=== PATIENT | male | born 1965 | race Caucasian/White ===

== ENCOUNTER → 2016-09-24 | Outpatient (CLI) | payer BC ==
[~2016-09-24] MED LIST: ASPI81TA28 PO; ATOR-24 PO; AZIT250T5 PO; ERGO1TAB10 PO; ESOM20CA PO; GLC/500 PO; HYDR5SYP11 PO; LISI-725 PO; MULT-506 PO
--- NOTE | 2016-09-25 05:15 | PAP/PSG TECHNICIAN REPORT ---
[facility] [place] Environmental Research Project Manager Polysomnogram Report Study name: None Report date: 09/25/2016 Study date: 09/24/2016 Referring Physician: Praveen March MD Name: ION CID Interpreting Physician: Nico Sadler M.D. Date of : 1965 Environmental Research Project Manager: [place]. Sex: Male Age: 50 StudyType: PSG Weight: 200 lbs Height: 50 years, Height 5' 6" Neck Circum:18INCHES BMI: 32.28 Medications: ASA, Atorvastatin, Lantus, Lisinopril, Metformin, Nexium, Vit D Patient History Study started on room air with no ETCO2 monitoring in room #8. 50 yr old male here tonight for a diagnostic psg. He has a history of HTN, diabetes and polycythemia. He had a sleep study several years ago in [place] but did not require treatment at that time. He snores. His ESS=12/24. His neck circ=18inches. Parameters Monitored NPSG: E1-M2, E2-M1, Fp1-M2, Fp2-M1, F3-M2, F4-M2, F4-M1, C3-M2, C4-M2, C4-M1, O1-M2, O2-M2, O2-M1, T3-M2, T4-M1, P3-M2, P4-M1, CHIN1, CHIN2, HR, EKG, Legs, PFLOW, SNOR, FLOW, CFLOW, Tidal Volume, THOR, ABDO, SpO2, PLTH, CPRESS, ETCO2 Wave, ETCO2, pH Sleep Architecture Sleep Stages Time at Lights Off 9:34:52 PM STAGES Time (min.) TST (%) Time at Lights On 4:53:52 AM Wake 48.5 -- Total Recording Time (TRT) 439.00 min. N1 41.5 11 Total Sleep Period (TSP) 431.0 min. N2 212.0 54 Total Sleep Time (TST) 390.5min. N3 57.5 15 Awake Time 48.5 min. REM 79.5 20 Wake after Sleep Onset 40.5 min. Sleep Efficiency (SE) 89 % Sleep Onset Latency (CARA) 8.0 min. Number of Stage 1 Shifts None Awakenings 30 Stage Changes 152 Number of REM periods 9 REM 79.5 20 REM Latency 51.0 min. NREM 311.0 80 Body Position Analysis Supine Right Left Side Prone Vertical Total Sleep Time (min.) 52.8 197.5 166.5 363.98 0.0 0.0 Total Sleep Time (%) 7% 51% 43% 93 0% N/A% Total Sleep Time REM (min.) 0.0 45.5 34.0 None 0.0 0.0 Total Sleep Time NREM (min.) 26.5 152.0 132.5 None 0.0 0.0 Intermittent Wake (min.) 26.3 12.7 9.5 None 0.0 0.0 Total Sleep Period (%) 10% None None None None None Arousals Myoclonus (PLM) * Events Count Index Events Count Index Spontaneous 5 1 Events Awake (PLMW) 77 95.3 Respiratory 60 10.8 Events Asleep w/ Arousal (PLMA) 12 1.8 PLM 12 2 Events Asleep w/o Arousal (PLMS) 124 19.1 Snoring 7 1 Total Asleep 136 20.9 Total 84 13 Total 213 29 Respiratory Analysis * CA OA MA CH H RERA Total Count 3 20 7 0 85 0 115 Index 0.5 3.1 1.1 0 13.1 0 17.7 Mean Duration 13.8 28.5 36.9 0.00 31.0 0.0 30.5 Longest Duration 14.9 55.7 42.3 0.00 42.3 0.0 75.1 Respiratory Event Summary Total Supine ~Supine Right Left Prone REM NREM Apneas Count 30 21 9 5 4 N/A 2 28 Index 4.6 48 1 1.5 1.4 N/A 2 5 Hypopneas (4% Desat) Count 85 15 70 53 17 N/A 6 79 Index 13.1 33.9 12 16.1 6.1 N/A 4.5 15.2 Apneas & All Hypopneas Count 115 36 79 58 21 N/A 8 107 Index 17.7 81 13 18 8 N/A 6.0 20.6 Respiratory Events (Steel Layer+All Hyp+RERA) Count 115 36 79 58 21 N/A 8 107 Index 17.7 81 13 17.6 7.6 N/A 6.0 20.6 Respiratory Related Arousal Count 60 36 43 30 13 N/A 3 67 Index 10.8 61 7 9 5 N/A 2 13 Snoring Analysis Supine Right Left Prone REM NREM Total Snore duration 57.2 min Snores count 56 1,295 1,239 N/A 824 1,766 2,590 Snore mean duration 1.3 Sec Snores index 127 393 447 N/A 621.9 340.7 398.0 TST with snoring (%) 14.6% Desaturation Event Summary: Minimum %SpO2 Event Count Mean/Min/Max Duration(sec.) Desaturation Index % Time In Bed > 90 126 32.3 / 5.8 / 60.0 100.4 18.0 86 - 90 79 27.4 / 4.3 / 60.0 17.3 65.6 81 - 85 10 14.3 / 6.3 / 28.0 10.9 13.2 76 - 80 0 N/A 0.0 2.5 71 - 75 0 N/A 0.0 0.6 66 - 70 0 N/A 0.0 0.1 61 - 65 0 N/A 0.0 0.0 56 - 60 0 N/A 0.0 0.0 51 - 55 0 N/A 0.0 0.0 < 50 0 N/A 0.0 0.0 Total REM NREM Awake <50% 0.0 min. 0.0 min. 0.0 min. 0.0 min. 51 - 60% 0.0 min. 0.0 min. 0.0 min. 0.0 min. 61 - 70% 0.5 min. 0.0 min. 0.3 min. 0.2 min. 71 - 80% 13.0 min. 0.9 min. 9.1 min. 2.9 min. 81 - 90% 329.6 min. 68.3 min. 233.2 min. 28.1 min. 91 - 100% 75.3 min. 10.0 min. 57.1 min. 8.2 min. Average 88 88 88 87 Minimum SpO2 67 77 68 67 Desaturation Event Index 24.2 7.5 26.4 42.1 # Desat. Events below 89% 165 9 130 26 Time(%) with Saturation below 89% 51.5 11.7 34.3 5.6 Time(min.) with Saturation below 89% 215.6 48.8 143.4 23.3 Time (mins) REM (mins) NREM (mins) % of TST SpO2 Below 90% 143 10 N133 69.5 SpO2 Below 88% 70 0 0 33 Heart Rate Analysis Min (bpm) Max (bpm) Average (bpm) Awake 52 250 92 NREM 41 225 85 REM 53 107 80 Overall 41 225 84 Supplemental O2 Values Minimum O2 level: None Value Start Time End Time Environmental Research Project Manager Comments Mr. Cid slept in the right, left and supine positions. Cardiac arrhythmia and leg movements noted, please see print out. No bruxism noted. Snoring was noted and scored as a 3 on a scale of 1 through 5. (0=no snoring, 5=snoring loud enough to be heard through a closed door or down the [address]iaz way). He awoke once to use the restroom during the night. He stated that he slept worse than when at home. He needed up at 5am for work. The final report will be interpreted and signed by a sleep physician. The completed physician report will then be placed in the patient medical record. Therapy (cm H2O) 0 TIB (min.) 439.0 TST (min.) 390.5 Sleep Onset (min.) 8.0 REM Onset From Sleep (min.) 51.0 Sleep Efficiency % 89 Wakefulness (%) 11 Wakefulness (min.) 48.5 NREM 1 (%) 11 NREM 1 (min.) 41.5 NREM 2 (%) 54 NREM 2 (min.) 212.0 NREM 3 (%) 15 NREM 3 (min.) 57.5 REM (%) 20 REM (min.) 79.5 # Arousals 84 Arousal Index 13 # Snore 2,590 Snore Index 398.0 AHI 17.7 AHI Supine 81 AHI Non-Supine 13 NREM AHI 20.6 REM AHI 6.0 RDI 17.7 # Obstructive Apnea 20 # Central Apnea 3 # Mixed Apnea 7 # Hypopneas 85 RERAs 0 Total Respiratory Events 121 Time Below SpO2 89% (min.) 192.3 Mean NREM SpO2 (%) 88 Mean REM SpO2 (%) 88 Mean Sleep SpO2 (%) 88 Min NREM SpO2 (%) 68 Min REM SpO2 (%) 77 Position Supine (min.) 52.8 Position Non-supine (min.) 364.0 LM Index Sleep 20.9 LM Index NREM 25.3 LM Index REM 3.8 Mean Heart Rate (bpm) 84 Min Heart Rate (bpm) 41
--- NOTE | 2016-09-25 14:56 | POLYSOMNOGRAPH REPORT ---
CLINICAL DATA: 50-year-old male with BMI of 30.[address] Praveen March with a history of polycythemia. He had a sleep study in [place] several years ago, but did not require treatment. He does snore. His Olyphant sleepiness score is elevated at 12/24. SLEEP ARCHITECTURE: Total sleep period was 431 minutes. Total sleep time was 390.5 minutes divided between 311 minutes of non-REM sleep and 79.5 minutes of REM sleep. Sleep onset latency was 8 minutes. REM latency was 51 minutes. Sleep efficiency was 89%. Wake after sleep onset was 40.5 minutes. Sleep consisted of stage N1 11%, N2 54%, N3 15%, REM 20%. AROUSAL DATA: 84 arousals recorded for an index of 13 per hour. PLM DATA: 136 limb movements during sleep were noted for an index of 28.9 per hour with arousal index of 1.8 per hour. RESPIRATORY DATA: Moderate sleep apnea/hypopnea was documented. The AHI was 17.7. There were 3 central, 20 obstructive, and 7 mixed apneic episodes. The longest duration of apnea was 55.7 seconds. There were 85 hypopneic episodes. The longest duration of hypopnea was 42.3 seconds. OXIMETRY DATA: Significant nocturnal hypoxemia was seen. Oxygen chaitanya was 68%. Mean saturation was 88%. Time below 88% was 70 minutes. EKG: Heart rates ranged from 41-107 beats per minute. Occasional PVC's were seen. RECREATION PROFESSOR'S COMMENTS: The patient slept in the right, left, and supine positions. Snoring was moderate, rated 3 on a scale of 1-5. IMPRESSION: Moderate sleep apnea/hypopnea with severe nocturnal hypoxemia. RECOMMENDATIONS: The patient may benefit from a repeat sleep study with CPAP and sleep medicine consultation. Clinical correlation is needed. SAUL
== END | disposition home or self-care (01) ==
LOC: C.NEUR 21:00
PROVIDERS: ATTEND Internal Medicine Hematology & Oncology
DX: D75.1 Secondary polycythemia (principal); G47.30 Sleep apnea, unspecified; R09.02 Hypoxemia

== ENCOUNTER → 2016-12-02 | Outpatient (CLI) | payer BC ==
[~2016-12-02] VITALS: Ht 167.6 cm; Wt 97.3 kg
[~2016-12-02] MED LIST changes: +AZIT-60 PO; -AZIT250T5 PO
[2016-12-02 12:14] VITALS: BP 146/82; PULSE 101; Ht 167.6 cm; Wt 97.3 kg
== END | disposition home or self-care (01) ==
LOC: C.NEUR 11:39
PROVIDERS: ATTEND Internal Medicine Pulmonary Disease
DX: G47.34 Idiopathic sleep related nonobstructive alveolar hypoventilation (principal); G47.33 Obstructive sleep apnea (adult) (pediatric)

== ENCOUNTER → 2016-12-18 | Outpatient (CLI) | payer BC ==
--- NOTE | 2016-12-19 05:37 | PAP/PSG TECHNICIAN REPORT ---
[facility] [address] Manufacturing Engineer Assembly Polysomnogram Report Study name: None Report date: 12/19/2016 Study date: 12/18/2016 Referring Physician: Praveen March MD Name: ION CID Interpreting Physician: Nico Sadler M.D. Date of : 1965 Manufacturing Engineer Assembly: [employer]. Sex: Male Age: 50 Study Type: PSG PAP Weight: 200 lbs 18 in Height: 50 years, Height 5' 6" Neck Circum: BMI: 32.28 Medications: ASA, Atorvastatin, Lantus, Lisinopril, Metformin, Nexium, Vit D Patient History 50 yr-old male here for a new CPAP treatment study. He was found to be positive for MINESH with an AHI of 17.7. His diagnostic study was on in 09/24/16. He chose an Eson 2 nasal mask size medium from [employer]. The test was started on room air and 4 CMH2O. ETCO2 testing was not utilized during this study. He requested to get up at 5 am for work. Room 1 Parameters Monitored NPSG: E1-M2, E2-M1, Fp1-M2, Fp2-M1, F3-M2, F4-M2, F4-M1, C3-M2, C4-M2, C4-M1, O1-M2, O2-M2, O2-M1, T3-M2, T4-M1, P3-M2, P4-M1, CHIN1, CHIN2, HR, EKG, Legs, PFLOW, SNOR, FLOW, CFLOW, Tidal Volume, THOR, ABDO, SpO2, PLTH, CPRESS, ETCO2 Wave, ETCO2, pH Sleep Architecture Sleep Stages Time at Lights Off 8:59:32 PM STAGES Time (min.) TST (%) Time at Lights On 5:03:02 AM Wake 115.0 -- Total Recording Time (TRT) 483.50 min. N1 29.0 8 Total Sleep Period (TSP) 464.5 min. N2 244.0 66 Total Sleep Time (TST) 368.5min. N3 0.0 0 Awake Time 115.0 min. REM 95.5 26 Wake after Sleep Onset 97.5 min. Sleep Efficiency (SE) 76 % Sleep Onset Latency (CARA) 17.5 min. Number of Stage 1 Shifts None Awakenings 18 Stage Changes 60 Number of REM periods 8 REM 95.5 26 REM Latency 121.0 min. NREM 273.0 74 Body Position Analysis Supine Right Left Side Prone Vertical Total Sleep Time (min.) 212.2 120.5 72.5 192.99 0.0 0.0 Total Sleep Time (%) 48% 33% 20% 52 0% N/A% Total Sleep Time REM (min.) 51.0 44.5 0.0 None 0.0 0.0 Total Sleep Time NREM (min.) 124.5 76.0 72.5 None 0.0 0.0 Intermittent Wake (min.) 36.7 12.2 66.1 None 0.0 0.0 Total Sleep Period (%) 46% None None None None None Arousals Myoclonus (PLM) * Events Count Index Events Count Index Spontaneous 18 3 Events Awake (PLMW) 152 79.3 Respiratory 1 0.2 Events Asleep w/ Arousal (PLMA) 5 0.8 PLM 5 1 Events Asleep w/o Arousal (PLMS) 78 12.7 Snoring 0 0 Total Asleep 83 13.5 Total 24 4 Total 235 29 Respiratory Analysis * CA OA MA CH H RERA Total Count 0 3 0 0 11 0 14 Index 0.0 0.5 0.0 0 1.8 0 2.3 Mean Duration 0.0 20.2 0.0 0.00 19.2 0.0 19.4 Longest Duration 0.0 25.1 0.0 0.00 0.0 0.0 34.6 Respiratory Event Summary Total Supine ~Supine Right Left Prone REM NREM Apneas Count 3 3 0 0 0 N/A 1 2 Index 0.5 1 0 0.0 0.0 N/A 1 0 Hypopneas (4% Desat) Count 11 6 5 5 0 N/A 4 7 Index 1.8 2.1 2 2.5 0.0 N/A 2.5 1.5 Apneas & All Hypopneas Count 14 9 5 5 0 N/A 5 9 Index 2.3 3 2 2 0 N/A 3.1 2.0 Respiratory Events (Talent Associate+All Hyp+RERA) Count 14 9 5 5 0 N/A 5 9 Index 2.3 3 2 2.5 0.0 N/A 3.1 2.0 Respiratory Related Arousal Count 1 9 1 1 0 N/A 1 0 Index 0.2 0 0 0 0 N/A 1 0 Snoring Analysis Supine Right Left Prone REM NREM Total Snore duration 3.3 min Snores count 22 115 15 N/A 15 137 152 Snore mean duration 1.3 Sec Snores index 8 57 12 N/A 9.4 30.1 24.7 TST with snoring (%) 0.9% Desaturation Event Summary: Minimum %SpO2 Event Count Mean/Min/Max Duration(sec.) Desaturation Index % Time In Bed > 90 60 22.1 / 4.3 / 56.3 20.4 37.6 86 - 90 23 21.1 / 6.3 / 56.5 4.7 62.0 81 - 85 0 N/A 0.0 0.4 76 - 80 0 N/A 0.0 0.1 71 - 75 0 N/A 0.0 0.0 66 - 70 0 N/A 0.0 0.0 61 - 65 0 N/A 0.0 0.0 56 - 60 0 N/A 0.0 0.0 51 - 55 0 N/A 0.0 0.0 < 50 0 N/A 0.0 0.0 Total REM NREM Awake <50% 0.0 min. 0.0 min. 0.0 min. 0.0 min. 51 - 60% 0.0 min. 0.0 min. 0.0 min. 0.0 min. 61 - 70% 0.0 min. 0.0 min. 0.0 min. 0.0 min. 71 - 80% 0.3 min. 0.0 min. 0.0 min. 0.3 min. 81 - 90% 293.7 min. 72.7 min. 184.7 min. 36.2 min. 91 - 100% 176.8 min. 22.7 min. 85.0 min. 69.1 min. Average 90 89 90 91 Minimum SpO2 72 81 78 72 Desaturation Event Index 8.7 5.0 2.9 26.6 # Desat. Events below 89% 38 5 12 21 Time(%) with Saturation below 89% 23.4 6.1 14.9 2.4 Time(min.) with Saturation below 89% 110.0 28.6 69.9 11.5 Time (mins) REM (mins) NREM (mins) % of TST SpO2 Below 90% 20 7 N13 49.8 SpO2 Below 88% 6 0 0 8 Heart Rate Analysis Min (bpm) Max (bpm) Average (bpm) Awake 43 127 84 NREM 45 225 80 REM 53 100 74 Overall 45 225 78 Supplemental O2 Values Minimum O2 level: None Value Start Time End Time Manufacturing Engineer Assembly Comments Mr. Cid slept in the right, left, and supine positions. No cardiac arrhythmias or PLMs noted. No bruxism noted. CPAP was initiated at +4 CMH2O and up-titrated to a level of +7 CMH2O, Cflex 3 which nearly eliminated all respiratory events and snoring. O2 was not titrated as he was not on an optimal pressure for 2 hours. An Eson 2 nasal mask size medium from [employer] was used during titration. He had tried many masks and the Eson 2 was the one that did not place pressure on his sinuses or bother him. He awoke to use the restroom one time during the night. Mr. Cid stated that he was unsure of how he slept. The final report will be interpreted and signed by a sleep physician. The completed physician report will then be placed in the patient medical record. Therapy Event: Therapy (cm H20) 4 5 6 7 Total Time at Pressure (min.) 153.8 109.2 138.4 82.1 TST at Pressure (min.) 71.3 107.2 134.4 55.6 # Periods 1 1 1 1 Sleep Onset (min.) 17.5 0.0 0.0 0.0 REM Onset (min.) 138.5 35.2 61.0 43.6 Sleep Efficiency % 46 98 97 67 Wakefulness (%) 53.6 1.8 2.9 32.3 Wakefulness (min.) 82.5 2.0 4.0 26.5 NREM 1 (%) 6.5 6.0 3.6 9.1 NREM 1 (min.) 10.0 6.5 5.0 7.5 NREM 2 (%) 37.9 54.2 60.6 51.9 NREM 2 (min.) 58.3 59.2 83.9 42.6 NREM 3 (%) 0.0 0.0 0.0 0.0 NREM 3 (min.) 0.0 0.0 0.0 0.0 REM (%) 2.0 38.0 32.9 6.7 REM (min.) 3.0 41.5 45.5 5.5 # Arousals 5 5 4 10 Arousal Index 4.2 2.8 1.8 10.8 # Snore 88 40 19 5 Snore Index 74.0 22.4 8.5 5.4 AHI 0.8 2.2 3.6 1.1 AHI Supine N/A N/A 3.8 1.2 AHI Non-Supine 0.8 2.2 0.0 0.0 NREM AHI 0.0 1.8 4.1 1.2 REM AHI 20.0 2.9 2.6 0.0 RDI 0.8 2.2 3.6 1.1 # Obstructive 0 0 3 0 # Central Ap 0 0 0 0 # Mixed 0 0 0 0 # Hypopneas 1 4 5 1 RERAS 0 0 0 0 Total Respiratory Events 1 4 8 1 Time Below SpO2 89.00% (min.) 11.8 7.3 53.1 26.4 Mean NREM SpO2 (%) 90 91 89 89 Mean REM SpO2 (%) 89 90 89 89 Mean Sleep SpO2 (%) 90 91 89 89 Min NREM SpO2 (%) 85 86 78 86 Min REM SpO2 (%) 87 81 86 87 Position Supine (min.) 0.0 0.0 126.9 48.6 Position Non-supine (min.) 71.3 107.2 7.4 7.0 LM Index Sleep 49.6 9.0 3.1 1.1 LM Index NREM 51.8 10.0 3.4 0.0 LM Index REM 0.0 7.2 2.6 10.9 Mean Heart Rate (bpm) 86 78 76 76 Min Heart Rate (bpm) 45 56 53 60
--- NOTE | 2016-12-20 01:00 | POLYSOMNOGRAPH REPORT ---
CLINICAL DATA: A 50-year-old male with BMI of 32.3, referred by Dr. Praveen March for a CPAP titration study. He had a baseline sleep study which showed moderate sleep apnea with an AHI of 17.7. He chose an Eson 2 nasal mask, size medium, from [employer]. SLEEP ARCHITECTURE: Total sleep period was 464.5 minutes. Total sleep time was 368.5 minutes divided between 237 minutes of non-REM sleep and 95.5 minutes of REM sleep. Sleep onset latency was 17.5 minutes. REM latency was 120 minutes. Sleep efficiency was 76%. Wake after sleep onset was 97.5 minutes. Sleep consisted of stage N1 8%, N2 66%, REM 26%. AROUSAL DATA: 24 arousals were recorded for an index of 4 per hour. 18 were spontaneous. PLM DATA: 83 limb movements during sleep were noted for an index of 13.5 per hour with arousal index of 0.8 per hour. RESPIRATORY DATA: The AHI was 2.3. There were 3 obstructive apneic episodes. The longest apneic episode was 25.1 seconds. There were 11 hypopneic episodes. The mean duration of hypopnea was 19.2 seconds. OXIMETRY DATA: Nocturnal hypoxemia was seen. Oxygen chaitanya was 78% during non-REM sleep. Mean saturation was 90%. Time below 88% was 6 minutes. EKG: Heart rates ranged from 45-100 beats per minute. No arrhythmias were noted. YOLK SPRAY DRIER'S COMMENTS: The patient slept in the right, left, and supine positions. He was started on CPAP and titrated up to his final pressure setting of 7 cm of water pressure, C-Flex setting #3. At his final pressure setting, the patient slept for 55.6 minutes with an AHI of 1.1 and with correction of his nocturnal hypoxemia. IMPRESSION: Moderate sleep apnea/hypopnea with nocturnal hypoxemia corrected with CPAP 7 cm of water pressure, C-Flex setting #3 utilizing an Eson 2 nasal mask, size medium, from [employer]. RECOMMENDATIONS: The patient should be started on the above-noted treatment regimen and seen back in followup within 90 days to document efficacy and compliance. [facility]
== END | disposition home or self-care (01) ==
LOC: C.NEUR 20:00
PROVIDERS: ATTEND Internal Medicine Pulmonary Disease
DX: G47.34 Idiopathic sleep related nonobstructive alveolar hypoventilation (principal); G47.33 Obstructive sleep apnea (adult) (pediatric)

== ENCOUNTER → 2017-01-06 | Outpatient (CLI) | payer BC ==
[~2017-01-06] VITALS: Ht 167.6 cm; Wt 96.0 kg
[2017-01-06 16:12] VITALS: BP 132/88; PULSE 85; Ht 167.6 cm; Wt 96.0 kg
== END | disposition home or self-care (01) ==
LOC: C.NEUR 14:29
PROVIDERS: ATTEND Internal Medicine Pulmonary Disease
DX: G47.33 Obstructive sleep apnea (adult) (pediatric) (principal); G47.34 Idiopathic sleep related nonobstructive alveolar hypoventilation; D75.1 Secondary polycythemia

== ENCOUNTER 2017-01-30 06:27 | Emergency (ER) | payer BC ==
[~2017-01-30] VITALS: Ht 167.6 cm; Wt 94.0 kg
[2017-01-30 06:31] VITALS: TEMP 36.7; Ht 167.6 cm; Wt 94.0 kg
[2017-01-30] MEDS ORDERED: ALBUT/IPRATROP 3MG/0.5MG NEB 3 ML VIAL INH STA (06:42)
--- NOTE | 2017-01-30 06:54 | EMERGENCY ROOM VISIT NOTE ---
History Report prepared by Campbell: Rosalia Durán Under the Supervision of: Dr. Jose Daniel Page M.D. First contact with patient: 06:35 Chief Complaint: ARM PAIN Stated Complaint: LEFT ARM PAIN INTO CHEST WHEN COUGH HARD History of Present Illness The patient is a 51 year old male who presents to the Emergency Room with complaints of worsening left anterior upper chest pain that started yesterday. The pain is constant and radiates into his left arm. The pain is worse with coughing. He states that moving his left shoulder also occasionally makes the pain worse. Nothing seems to make the pain better. The patient denies any recent strenuous activity. The patient is also experiencing a dry cough that started a couple days ago. He adds that he is also experiencing sinus congestion , but that is normal for him. The patient has a history of hypertension. He states that he also takes metformin for high A1C. He also has a family history of heart disease and states that his father had a [place] when he was in his 40s. The patient states that he is a former smoker. Source of History: patient Onset: yesterday Position: chest (left upper) Quality: other (left upper chest pain) Timing: constant, worsening Modifying Factors (Worsening): movement (of left shoulder), other (coughing) Modifying Factors (Relieving): other (None) Associated Symptoms: + cough (dry) Note: left arm pain Review of Systems See HPI for pertinent positives & negatives. A total of 10 systems reviewed and were otherwise negative. Past Medical & Surgical Medical Problems: (1) Diabetes (2) Hypertension Family History Heart disease Stroke Social History Smoking Status: Former Smoker Marital Status: single Current/Historical Medications Scheduled Aspirin (Aspirin Ec), 81 MG PO DAILY Atorvastatin (Lipitor), 40 MG PO HS Azithromycin (Zithromax), 250 MG PO DAILY Ergocalciferol (Vitamin D2), 800 UNITS PO DAILY Esomeprazole Magnesium (Nexium), 20 MG PO DAILY Lisinopril (Zestril), 20 MG PO DAILY Metformin Hcl (Glucophage), 500 MG PO BID Multivitamin (Multivitamin), 1 TAB PO DAILY Scheduled PRN Hydrocodone W/ Homatropine (Hycodan 5/1.5MG 5 Ml), 5 ML PO HS PRN for Cough Allergies Coded Allergies: No Known Allergies (Unverified , 01/30/17) Physical Exam Vital Signs Date Time Temp Pulse Resp B/P (MAP) Pulse Ox O2 Delivery O2 Flow Rate FiO2 01/30/17 08:47 01/30/17 08:32 94 24 97 01/30/17 08:17 96 16 96 01/30/17 08:02 92 19 95 01/30/17 08:01 124/77 01/30/17 07:47 95 16 94 01/30/17 07:42 109 11 93 01/30/17 07:35 93 Nasal Cannula 2.0 01/30/17 07:34 88 Room Air 01/30/17 07:34 132/93 01/30/17 07:27 100 25 88 01/30/17 07:12 101 24 89 01/30/17 07:01 132/93 01/30/17 06:57 101 21 92 01/30/17 06:54 92 Room Air 01/30/17 06:53 96 18 126/90 94 Room Air 01/30/17 06:52 96 01/30/17 06:47 126/90 01/30/17 06:45 92 Room Air 01/30/17 06:31 36.7 110 20 145/85 94 Room Air Physical Exam GENERAL: Patient is a healthy-appearing well-nourished middle-aged male HEAD: Normocephalic atraumatic EYES: Ocular movements intact pupils equal and react to light OROPHARYNX mucous membranes are moist no exudates present no erythema or edema present NECK: Supple no nuchal rigidity CHEST: Good equal expansion, anterior left shoulder is tender to palpation which is reproducible of pain LUNGS: Clear and equal to auscultation CARDIAC: Normal S1 and S2 ABDOMEN: Soft nontender no guarding BACK: No CVA tenderness EXTREMITIES: No pain upon palpation normal muscle strength in all groups no clubbing cyanosis or edema NEURO: Patient is following commands and answering questions appropriately. Alert and oriented x3 Cranial Nerves 2-12 grossly intact Medical Decision & Procedures ER Provider Diagnostic Interpretation: Radiology results as stated below per my review and radiologist interpretation: CHEST ONE VIEW PORTABLE FINDINGS: The bones soft tissues and hemidiaphragms are normal. The cardiomediastinal silhouette is normal. The lungs are clear. The pulmonary vasculature is normal. IMPRESSION: Negative chest. Electronically signed by: Ranjit Santos M.D. 01/30/2017 6:59 AM Dictated Date/Time: 01/30/2017 6:59 AM Laboratory Results 01/30/17 06:56 Red Blood Count 6.28, Mean Corpuscular Volume 84.2, Mean Corpuscular Hemoglobin 27.5, Mean Corpuscular Hemoglobin Concent 32.7, Mean Platelet Volume 10.1, Neutrophils (%) (Auto) 55.0, Lymphocytes (%) (Auto) 30.7, Monocytes (%) (Auto) 11.5, Eosinophils (%) (Auto) 1.7, Basophils (%) (Auto) 0.7, Neutrophils # (Auto ) 5.60, Lymphocytes # (Auto) 3.12, Monocytes # (Auto) 1.17, Eosinophils # (Auto ) 0.17, Basophils # (Auto) 0.07 01/30/17 06:56 Test 01/30/17 06:56 White Blood Count 10.17 K/uL (4.8-10.8) Red Blood Count 6.28 M/uL (4.7-6.1) Hemoglobin 17.3 g/dL (14.0-18.0) Hematocrit 52.9 % (42-52) Mean Corpuscular Volume 84.2 fL (80-100) Mean Corpuscular Hemoglobin 27.5 pg (25-34) Mean Corpuscular Hemoglobin Concent 32.7 g/dl (32-36) Platelet Count 385 K/uL (130-400) Mean Platelet Volume 10.1 fL (7.4-10.4) Neutrophils (%) (Auto) 55.0 % Lymphocytes (%) (Auto) 30.7 % Monocytes (%) (Auto) 11.5 % Eosinophils (%) (Auto) 1.7 % Basophils (%) (Auto) 0.7 % Neutrophils # (Auto) 5.60 K/uL (1.4-6.5) Lymphocytes # (Auto) 3.12 K/uL (1.2-3.4) Monocytes # (Auto) 1.17 K/uL (0.11-0.59) Eosinophils # (Auto) 0.17 K/uL (0-0.5) Basophils # (Auto) 0.07 K/uL (0-0.2) RDW Standard Deviation 44.3 fL (36.4-46.3) RDW Coefficient of Variation 14.4 % (11.5-14.5) Immature Granulocyte % (Auto) 0.4 % Immature Granulocyte # (Auto) 0.04 K/uL (0.00-0.02) D-Dimer 210 ug/L FEU (0-500) Anion Gap 11.0 mmol/L (3-11) Est Creatinine Clear Calc Drug Dose 78.1 ml/min Estimated GFR () 80.7 Estimated GFR (Non- 69.6 BUN/Creatinine Ratio 17.6 (10-20) Calcium Level 8.7 mg/dl (8.5-10.1) Total Bilirubin 0.4 mg/dl (0.2-1) Direct Bilirubin mg/dl (0-0.2) Aspartate Amino Transf (AST/SGOT) 16 U/L (15-37) Alanine Aminotransferase (ALT/SGPT) 38 U/L (12-78) Alkaline Phosphatase 56 U/L (45-117) Total Creatine Kinase 87 U/L (39-308) Creatine Kinase MB 0.9 ng/ml (0.5-3.6) Creatine Kinase MB Ratio 1.0 (0-3.0) Troponin I < 0.015 ng/ml (0-0.045) Total Protein 7.1 gm/dl (6.4-8.2) Albumin 3.9 gm/dl (3.4-5.0) Lipase 166 U/L (73-393) Chemistry Specimen Hemolysis Labs reviewed by ED physician. Medications Administered Medications (Trade) Dose Ordered Sig/Thelma Route Start Time Stop Time Status Last Admin Dose Admin Albuterol/ Ipratropium (Duoneb) 3 ml NOW STAT INH 01/30/17 06:42 01/30/17 06:43 DC 01/30/17 06:54 3 ML Sodium Chloride 1,000 ml @ 999 mls/hr Q1H1M STAT IV 01/30/17 06:59 01/30/17 07:59 DC 01/30/17 07:06 999 MLS/HR Azithromycin (Zithromax Tab) 500 mg NOW STAT PO 01/30/17 08:09 01/30/17 08:10 DC 01/30/17 08:22 500 MG Albuterol (Ventolin Hfa Inhaler) 2 puffs NOW STAT INH 01/30/17 08:22 01/30/17 08:24 DC 01/30/17 08:26 2 PUFFS ECG Indication: chest pain Rate (beats per minute): 103 Rhythm: sinus tachycardia Findings: no acute ischemic change, no ectopy ED Course 0637: Past medical records reviewed. The patient was evaluated in room B9. A complete history and physical examination was performed. 0642: Ordered DuoNeb 3 ml INH 0659: Ordered Sodium Chloride 1000 ml @ 999 mls/hr IV 0809: Ordered Azithromycin 500 mg PO 0822: Ordered Albuterol 2 puffs INH 0835: Upon reexamination the patient is doing well. I discussed results and treatment plan with the patient. He verbalizes agreement and understanding. The patient is ready for discharge. Medical Decision Differential diagnosis: Etiologies such as cardiac ischemia, aortic dissection, pulmonary embolism, pneumonia, pneumothorax, musculoskeletal, infections, pericarditis, myocarditis , esophageal rupture, gastrointestinal, as well as others were entertained. Medication Reconciliation: I attest that I have personally reviewed the patient' s current medication list. Blood Pressure Screening: Patient was found to have an elevated blood pressure and was referred to their primary care doctor for recheck and further treatment This is a 51-year-old male that presents emergency department reproducible left chest pain that is also exacerbated by left arm movement. The patient is also wheezing on examination. For this reason he was given an albuterol breathing treatment in the emergency department. He was also given an albuterol inhaler for home. His chest x-ray does not show any evidence of pneumonia. He also does not have an elevation in his CK-MB and troponin fraction. As his pain is been ongoing for the past 3 days I would expect this to be elevated if this were related to cardiac ischemia. As such they are not. In addition the patient also has a normal d-dimer. I believe based on these findings at the patient can be safely discharged home for follow-up this primary care physician. After breathing treatment the patient's symptoms are relieved. I do believe he can be discharged home for follow-up with cardiology. Impression Primary Impression: Bronchitis Scribe Attestation The scribe's documentation has been prepared under my direction and personally reviewed by me in its entirety. I confirm that the note above accurately reflects all work, treatment, procedures, and medical decision making performed by me. Departure Information Dispostion Home / Self-Care Prescriptions Hydrocodone W/ Homatropine (HYCODAN 12/15.5MG 5 ML) 1 Syp Syp 5 ML PO HS Y for Cough, #120 ML Prov: Jose Daniel Page MD 01/30/17 Azithromycin (ZITHROMAX) 250 Mg Tab 250 MG PO DAILY, #4 TAB Prov: Jose Daniel Page MD 01/30/17 Referrals Brian Jeffers MD (PCP) Forms HOME CARE DOCUMENTATION FORM, IMPORTANT VISIT INFORMATION Patient Instructions ED Bronchitis Asthmatic, My [facility] Additional Instructions Take 2 puffs every 6 hours Need Follow up with DR Romero's office. No strenuous activity until follow up You were found to have an elevated blood pressure today (>120 sytolic or >90 diastolic). Per medicare guidelines, you need to follow up with this blood pressure screening with your Primary Care Physician (PCP). For a new PCP call [phone]. You received narcotic or benzodiazepine medication while in the emergency room today. Do not drive, operate heavy machinery, or drink alcohol under the influence of this medication. You have been examined and treated today on an emergency basis only. This is not a substitute for, or an effort to provide, complete comprehensive medical care. It is impossible to recognize and treat all injuries or illnesses in a single emergency department visit. It is therefore important that you follow up closely with DR Jeffers. Call as soon as possible for an appointment. Thank you for your time and consideration. I look forward to speaking with you again soon. Please don't hesitate to call us if you have any questions.
[2017-01-30] MEDS ORDERED: SODIUM CHLORIDE 0.9% 1000ML 1,000 ML IV STA (06:59)
--- NOTE | 2017-01-30 07:00 | DIAGNOSTIC IMAGING REPORT ---
CHEST ONE VIEW PORTABLE CLINICAL HISTORY: CHEST PAIN dyspnea COMPARISON STUDY: 06/23/2016 FINDINGS: The bones soft tissues and hemidiaphragms are normal. The cardiomediastinal silhouette is normal. The lungs are clear. The pulmonary vasculature is normal. IMPRESSION: Negative chest. Electronically signed by: Ranjit Santos M.D. 01/30/2017 6:59 AM Dictated Date/Time: 01/30/2017 6:59 AM
[2017-01-30 07:09] LABS: BASO % 0.7 %; BASO ABS # 0.07 K/uL (0-0.2); COMPLETE YES; EOS % 1.7 %; HEMATOCRIT 52.9 % (42-52); IG% 0.4 %; LYMPH % 30.7 %; LYMPH ABS # 3.12 K/uL (1.2-3.4); MEAN CELL VOLUME 84.2 fL (80-100); MEAN CORPUSCULAR HEMOGLOBIN 27.5 pg (25-34); MEAN CORPUSCULAR HGB CONC 32.7 g/dl (32-36); MEAN PLATELET VOLUME 10.1 fL (7.4-10.4); MONO % 11.5 %; PLATELET COUNT 385 K/uL (130-400); RED BLOOD COUNT 6.28 M/uL (4.7-6.1); WHITE BLOOD COUNT 10.17 K/uL (4.8-10.8)
[2017-01-30] MEDS ORDERED: ERGO1TAB10 PO (07:09)
[2017-01-30] MEDS ORDERED: ASPI81TA28 PO (07:09)
[2017-01-30] MEDS ORDERED: ESOM20CA PO (07:09)
[2017-01-30] MEDS ORDERED: ATOR-24 PO (07:09)
[2017-01-30] MEDS ORDERED: MULT-506 PO (07:09)
[2017-01-30] MEDS ORDERED: LISI-725 PO (07:09)
[2017-01-30] MEDS ORDERED: GLC/500 PO (07:09)
[2017-01-30 07:35] VITALS: O2SAT 93
[2017-01-30 08:01] VITALS: BP 124/77
[2017-01-30 08:07] LABS: ALKALINE PHOSPHATASE 56 U/L (45-117); ALT/SGPT 38 U/L (12-78); AST/SGOT 16 U/L (15-37); BLOOD UREA NITROGEN 21 mg/dl (7-18); BUN/CREATININE RATIO 17.6 (10-20); CALCIUM 8.7 mg/dl (8.5-10.1); CARBON DIOXIDE 24 mmol/L (21-32); CHLORIDE 105 mmol/L (98-107); GLUCOSE 218 mg/dl (70-99); POTASSIUM 4.1 mmol/L (3.5-5.1); SODIUM 140 mmol/L (136-145)
[2017-01-30] MEDS ORDERED: AZITHROMYCIN 250 MG TAB PO STA (08:09)
[2017-01-30] MEDS ORDERED: ALBUTEROL HFA 8 GM INHALER INH STA (08:22)
[2017-01-30] MEDS ORDERED: HYDR5SYP11 PO (08:25)
[2017-01-30] MEDS ORDERED: AZIT-60 PO (08:25)
[2017-01-30 08:32] VITALS: PULSE 94; O2SAT 97
== END 2017-01-30 08:49 | disposition home or self-care (01) ==
LOC: C.EDB 06:29
DX: J40 Bronchitis, not specified as acute or chronic (principal); I10 Essential (primary) hypertension; Z79.899 Other long term (current) drug therapy; Z82.49 Family history of ischemic heart disease and other diseases of the circulatory system; Z87.891 Personal history of nicotine dependence; E11.9 Type 2 diabetes mellitus without complications; Z82.3 Family history of stroke; Z79.82 Long term (current) use of aspirin

== ENCOUNTER → 2017-03-16 | Outpatient (CLI) | payer BC ==
[~2017-03-16] MED LIST changes: -AZIT-60 PO; -HYDR5SYP11 PO
--- NOTE | 2017-03-16 19:16 | DIAGNOSTIC IMAGING REPORT ---
CERVICAL SPINE 6 VIEWS CLINICAL HISTORY: Left upper extremity paresthesias. FINDINGS: AP, lateral, bilateral oblique, odontoid, and swimmer's views of the cervical spine are obtained. No prior studies are available for comparison at the time of dictation. The skeletal structures are well mineralized. No fracture or malalignment is identified. There is straightening of cervical lordosis with mild reversal centered at C4-C5. Small anterior osteophytes are seen throughout. Vertebral body height and alignment are maintained. The spinolaminar line is intact. The odontoid process and lateral masses appear intact as seen on the open-mouth view. Small anterior osteophytes are identified. No significant neural foraminal stenosis is identified on the oblique views. Tiny posterior disc osteophyte complexes at C5-C6 and C6-C7 may contribute to mild acquired compromise of the central canal. There is mild disc space narrowing at C5-C6 and C6-C7. The remaining disc spaces are preserved. The prevertebral soft tissues are within normal limits. There is mild atherosclerotic calcification of the left carotid bulb. The partially imaged apical lung parenchyma appears clear. IMPRESSION: 1. No acute bony abnormality is identified involving the cervical spine. 2. Mild spondylotic change as above, greatest at C5-C6 and C6-C7. Dictated: 03/16/2017 4:40 PM Transcribed: 03/16/2017 7:16 PM [email or web address] Electronically signed by: Brown Cedillo M.D. 03/16/2017 7:17 PM Dictated Date/Time: 03/16/2017 4:40 PM
== END | disposition home or self-care (01) ==
LOC: C.RAD1850 16:26
PROVIDERS: ATTEND Family Medicine
DX: R20.2 Paresthesia of skin (principal)

== ENCOUNTER → 2017-03-31 | Outpatient (CLI) | payer BC ==
[~2017-03-31] VITALS: Ht 167.6 cm; Wt 94.9 kg
[2017-03-31 15:07] VITALS: BP 134/87; PULSE 90; Ht 167.6 cm; Wt 94.9 kg
== END | disposition home or self-care (01) ==
LOC: C.NEUR 14:47
PROVIDERS: ATTEND Internal Medicine Pulmonary Disease
DX: G47.33 Obstructive sleep apnea (adult) (pediatric) (principal); G47.34 Idiopathic sleep related nonobstructive alveolar hypoventilation; D75.1 Secondary polycythemia

== ENCOUNTER → 2017-04-16 | Outpatient (CLI) | payer BC ==
--- NOTE | 2017-04-16 17:47 | DIAGNOSTIC IMAGING REPORT ---
CERVICAL WITHOUT CONTRAST HISTORY: 51 years-old Male PAIN IN LEFT UPPER EXTREMITY COMPARISON: Cervical spine radiographs 03/16/2017 TECHNIQUE: Multiplanar multisequence MRI of the cervical spine was obtained without contrast. FINDINGS: There is no focal bone marrow edema or fracture identified. There is straightening of the normal cervical lordosis with multilevel discogenic degenerative changes as below. Imaged posterior fossa structures are unremarkable. No focal soft tissue abnormality identified. Mild right maxillary sinus disease is partially imaged on the sagittal images. C2-C3: Mild uncovertebral spurring without central canal or foraminal narrowing. Mild facet arthrosis. C3-C4: Left lateral recess disc osteophyte complex causes mild left lateral recess and mild left foraminal narrowing. Central canal and right foramen are patent. Mild facet arthrosis. C4-C5: Mild intervertebral disc space narrowing with left paracentral disc osteophyte complex partially indents the ventral thecal sac without significant central canal narrowing. The foramen are patent. Mild facet arthrosis. C5-C6: Mild intervertebral disc space narrowing with broad-based posterior disc osteophyte complex is present resulting in mild left foraminal and mild central canal stenosis. Right foramen is generally patent. Mild facet arthrosis. C6-C7: Broad-based posterior disc osteophyte complex formation is noted with a left paracentral disc extrusion extending cephalad 6 mm. These changes cause mild to moderate central canal, moderate left lateral recess, moderate to severe left and mild right foraminal narrowing. Additionally, there is mildly increased T2/STIR signal within the central cord at this level nicely seen on image 8 of the sagittal STIR series. Mild facet arthrosis. C7-T1: No central canal or foraminal narrowing. Mild uncovertebral spurring. Mild facet arthrosis. The imaged upper thoracic levels are unremarkable on the sagittal imaging alone. IMPRESSION: 1. At C6-C7 there is a broad-based posterior disc osteophyte complex formation noted with a left paracentral disc extrusion extending cephalad 6 mm. These changes cause mild to moderate central canal, moderate left lateral recess, moderate to severe left and mild right foraminal narrowing. Additionally, there is mildly increased T2/STIR signal within the central cord at this level suggesting associated myelomalacia. 2. Additional discogenic degenerative changes are noted involving the upper and mid cervical spine as above. 3. Straightening of the normal cervical lordosis be secondary to positioning or muscle spasm. 4. Partially imaged right maxillary sinus disease. The above report was generated using voice recognition software. It may contain grammatical, syntax or spelling errors. Electronically signed by: Aki Ndiaye M.D. 04/16/2017 5:46 PM Dictated Date/Time: 04/16/2017 5:03 PM
== END | disposition home or self-care (01) ==
LOC: C.MRIBC 15:53
PROVIDERS: ATTEND Physician Assistant
DX: M79.602 Pain in left arm (principal); R20.2 Paresthesia of skin; M25.78 Osteophyte, vertebrae

== ENCOUNTER → 2017-07-25 | Outpatient (CLI) | payer BC ==
[2017-07-25 10:28] LABS: BASO % 1.4 %; BASO ABS # 0.15 K/uL (0-0.2); COMPLETE YES; EOS % 0.9 %; HEMATOCRIT 49.5 % (42-52); IG% 0.6 %; LYMPH % 21.1 %; LYMPH ABS # 2.23 K/uL (1.2-3.4); MEAN CELL VOLUME 87.1 fL (80-100); MEAN CORPUSCULAR HEMOGLOBIN 29.9 pg (25-34); MEAN CORPUSCULAR HGB CONC 34.3 g/dl (32-36); MEAN PLATELET VOLUME 10.4 fL (7.4-10.4); MONO % 14.9 %; NEUT % 61.1 %; PLATELET COUNT 347 K/uL (130-400); RED BLOOD COUNT 5.68 M/uL (4.7-6.1); WHITE BLOOD COUNT 10.58 K/uL (4.8-10.8)
[2017-07-25 10:53] LABS: BLOOD UREA NITROGEN 17 mg/dl (7-18); BUN/CREATININE RATIO 15.3 (10-20); CALCIUM 9.5 mg/dl (8.5-10.1); CARBON DIOXIDE 30 mmol/L (21-32); CHLORIDE 101 mmol/L (98-107); CREATININE 1.09 mg/dl (0.60-1.40); GLUCOSE 232 mg/dl (70-99); POTASSIUM 4.5 mmol/L (3.5-5.1); SODIUM 136 mmol/L (136-145)
[2017-07-25 10:58] LABS: ESTIMATED AVERAGE GLUCOSE 278 mg/dl; HA1C FLAG Normal (Normal)
== END | disposition home or self-care (01) ==
LOC: C.LAB 09:58
PROVIDERS: ATTEND Student in an Organized Health Care Education/Training Program
DX: E11.9 Type 2 diabetes mellitus without complications (principal)

== ENCOUNTER → 2017-09-29 | Outpatient (CLI) | payer OTHER ==
[~2017-09-29] VITALS: Ht 167.6 cm; Wt 89.1 kg
[2017-09-29 16:02] VITALS: BP 121/83; PULSE 84; Ht 167.6 cm; Wt 89.1 kg
== END | disposition home or self-care (01) ==
LOC: C.NEUR 15:48
PROVIDERS: ATTEND Internal Medicine Pulmonary Disease
DX: G47.33 Obstructive sleep apnea (adult) (pediatric) (principal); G47.34 Idiopathic sleep related nonobstructive alveolar hypoventilation; E11.9 Type 2 diabetes mellitus without complications

== ENCOUNTER → 2018-03-24 | Outpatient (CLI) | payer OTHER | END | disposition home or self-care (01) | LOC: C.PATHSPEC 10:34 | PROVIDERS: ATTEND Surgery | DX: L72.0 Epidermal cyst (principal) ==